=== PATIENT | female | born 1975 | race Caucasian/White ===

== ENCOUNTER 2022-01-17 13:21 | Outpatient (CLI) | payer OTHER, SELFPAY ==
[2022-01-17 10:37] LABS: Albumin* 4.7 g/dL (3.3-5.0); Chloride* 100 mmol/L (96-114)
[2022-01-17 10:38] LABS: Potassium* 4.1 mmol/L (3.6-5.1); Sodium* 137 mmol/L (135-149)
[2022-01-17 10:39] LABS: Cholesterol* 182 mg/dL (90-199)
[2022-01-17 10:40] LABS: Alanine Aminotransferase* 18 U/L (4-35); Alkaline Phosphatase* 45 U/L (40-150); Aspartate Amino Transferase* 22 U/L (12-35); Bilirubin Total* 1.7 mg/dL (0.1-1.5); Blood Urea Nitrogen* 21 mg/dL (5-24); Calcium* 9.2 mg/dL (8.4-10.6); Carbon Dioxide* 29 mmol/L (20-32); Creatinine* 0.8 mg/dL (0.5-1.5); Estimated Glomerular Filt Rate 92 ml/min; Glucose* 85 mg/dL (60-115); Total Protein* 6.8 g/dL (6.0-8.3); Triglycerides* 60 mg/dL (40-149)
[2022-01-17 10:41] LABS: HDL Cholesterol* 81 mg/dL (>=50); LDL Cholesterol Calculated 89 mg/dL (<100)
== END 2022-01-17 13:22 | disposition home or self-care (01) ==
PROVIDERS: PCP Family Medicine; Visit Provider Family Medicine
DX: Z01.419 Encounter for gynecological examination (general) (routine) without abnormal findings (principal); Z13.6 Encounter for screening for cardiovascular disorders; Z13.9 Encounter for screening, unspecified
CPT/HCPCS: 80053; 80061

== ENCOUNTER 2022-02-05 09:03 | Outpatient (CLI) | payer OTHER, SELFPAY ==
--- NOTE | 2022-02-05 09:15 | CRLHL7_ITS ---
For Patients: As a result of the Cures Act, medical imaging exams and procedure reports are released immediately into your electronic medical record. You may view this report before your referring provider. If you have questions, please contact your health care provider. BILATERAL DIGITAL SCREENING MAMMOGRAM WITH TOMOSYNTHESIS AND COMPUTER-AIDED DETECTION CLINICAL HISTORY: Routine screening exam. COMPARISON: 12/29/2020, 11/17/2019, 07/01/2018, 07/02/2017. TECHNIQUE: Digital mammogram in CC and MLO projections including computer-aided detection (CAD). Tomosynthesis utilized. BREAST COMPOSITION: The breasts are heterogeneously dense, which may obscure small masses. FINDINGS: RIGHT Breast: Nodular density behind the RIGHT nipple 2 cm from the nipple. Probable fibrocystic change. LEFT Breast: No suspicious findings. IMPRESSION: RIGHT breast asymmetry/mass. RECOMMENDATIONS: RIGHT breast ultrasound recommended. BI-RADS Category 0: Incomplete: Need Additional Imaging Evaluation and/or Prior Mammograms for Comparison [facility] will contact the patient for follow-up. A lay language report of this examination will be provided to the patient. Dictated by Antwon Peoples MD @ 02/05/2022 11:13:24 AM j/Dictated by: Antwon Peoples MD @ 02/05/2022 11:14:00 AM (Electronically Signed)
== END 2022-02-05 09:04 | disposition home or self-care (01) ==
PROVIDERS: PCP Family Medicine; Visit Provider Family Medicine
DX: Z12.31 Encounter for screening mammogram for malignant neoplasm of breast (principal); N63.10 Unspecified lump in the right breast, unspecified quadrant
CPT/HCPCS: 77063; 77067

== ENCOUNTER 2022-02-20 09:02 | Outpatient (CLI) | payer OTHER, SELFPAY ==
--- NOTE | 2022-02-20 09:15 | CRLHL7_ITS ---
For Patients: As a result of the Cures Act, medical imaging exams and procedure reports are released immediately into your electronic medical record. You may view this report before your referring provider. If you have questions, please contact your health care provider. RIGHT BREAST ULTRASOUND CLINICAL HISTORY: RIGHT breast mass/asymmetry. COMPARISON: 02/05/2022. TECHNIQUE: Real-time ultrasound imaging of RIGHT breast with imaging documentation. FINDINGS: Targeted RIGHT breast ultrasound performed at 10 o`clock 1 cm from the nipple anechoic simple cyst is present with circumscribed margins and increased through-transmission measuring 1.9 x 0.4 x 1.7 cm. IMPRESSION: Benign fibrocystic change RIGHT breast 10 o`clock 1 cm from the nipple with simple cyst measuring 1.9 cm. No evidence of malignancy. RECOMMENDATIONS: Annual BILATERAL screening mammography. Results and recommendations were discussed with the patient at the time of the exam. BI-RADS Category 2: Benign A lay language report of this examination will be provided to the patient. Dictated by Antwon Peoples MD @ 02/20/2022 9:29:21 AM jj/Dictated by: Antwon Peoples MD @ 02/20/2022 9:29:00 AM (Electronically Signed)
== END 2022-02-20 09:03 | disposition home or self-care (01) ==
LOC: US 09:02
PROVIDERS: PCP Family Medicine; Visit Provider Family Medicine
DX: N63.10 Unspecified lump in the right breast, unspecified quadrant (principal); R92.8 Other abnormal and inconclusive findings on diagnostic imaging of breast
CPT/HCPCS: 76642

== ENCOUNTER 2023-01-24 08:25 | Outpatient (CLI) | payer OTHER, SELFPAY | END 2023-01-24 08:26 | disposition home or self-care (01) | LOC: NFLDREF 01-28 23:04 | PROVIDERS: PCP Family Medicine; Referring Provider Family Medicine; Visit Provider Family Medicine | DX: D69.6 Thrombocytopenia, unspecified (principal); R17 Unspecified jaundice; Z13.6 Encounter for screening for cardiovascular disorders | CPT/HCPCS: 80053; 80061 ==

== ENCOUNTER 2023-02-18 16:03 | Outpatient (CLI) | payer OTHER, SELFPAY ==
--- NOTE | 2023-02-18 16:15 | CRLHL7_ITS ---
For Patients: As a result of the Century Cures Act, medical imaging exams and procedure reports are released immediately into your electronic medical record. You may view this report before your referring provider. If you have questions, please contact your health care provider. BILATERAL SCREENING MAMMOGRAM WITH COMPUTER-AIDED DETECTION AND TOMOSYNTHESIS TECHNIQUE: CC and MLO views were obtained. These mammographic images have been obtained using full-field digital technique. These mammographic images were interpreted with the benefit of computer-aided detection. Breast Tomosynthesis was used in this interpretation. COMPARISON FILM: 02/05/22, 12/29/20, 11/17/19. FINDINGS: The breasts are heterogeneously dense, which may obscure small masses IMPRESSION: There is no radiographic evidence for malignancy. ASSESSMENT: BI-RADS Category 1: Negative RECOMMENDATION: Routine screening mammogram in 1 year. A lay language report of this examination will be provided to the patient. Antwon Peoples M.D. Diagnostic Radiologist [email or web address] Transcribed: 6:31 p.mJackson anglin/Dictated by: Antwon Peoples MD @ 02/19/2023 1:08:00 PM (Electronically Signed)
== END 2023-02-18 16:04 | disposition home or self-care (01) ==
LOC: MAMMO 16:04
PROVIDERS: PCP Family Medicine; Visit Provider Family Medicine
DX: Z12.31 Encounter for screening mammogram for malignant neoplasm of breast (principal); R92.2 Inconclusive mammogram
CPT/HCPCS: 77063; 77067

== ENCOUNTER 2024-05-31 08:40 | Outpatient (CLI) | payer OTHER, SELFPAY | END 2024-05-31 08:41 | disposition home or self-care (01) | LOC: NFLDREF 06-01 05:21 | PROVIDERS: PCP Family Medicine; Referring Provider Family Medicine; Visit Provider Family Medicine | DX: D69.6 Thrombocytopenia, unspecified (principal); Z13.6 Encounter for screening for cardiovascular disorders; Z13.1 Encounter for screening for diabetes mellitus | CPT/HCPCS: 80061; 82306; 82947 ==

== ENCOUNTER 2024-06-25 09:11 | Outpatient (CLI) | payer OTHER, SELFPAY ==
--- NOTE | 2024-06-25 09:15 | CRLHL7_ITS ---
For Patients: As a result of the Century Cures Act, medical imaging exams and procedure reports are released immediately into your electronic medical record. You may view this report before your referring provider. If you have questions, please contact your health care provider. INDICATION: BILATERAL SCREENING AMMOGRAM, ASYMPTOMATIC 49 Y/O FEMALE COMPARISON: 02/18/23, 02/05/22, 12/29/20 TECHNIQUE: CC and MLO views were obtained. These mammographic images have been obtained using full-field digital technique. These mammographic images were interpreted with the benefit of computer aided detection and tomosynthesis. BREAST COMPOSITION: The breasts are heterogeneously dense, which may obscure small masses. FINDINGS: No suspicious findings. ASSESSMENT: BI-RADS 2 Benign RECOMMENDATION: Annual screening mammogram. A lay language report of this examination will be provided to the patient. Dictated by: Antwon ePoples MD @ 06/25/2024 10:06:21 (Electronically Signed)
== END 2024-06-25 09:12 | disposition home or self-care (01) ==
PROVIDERS: PCP Family Medicine; Visit Provider Family Medicine
DX: Z12.31 Encounter for screening mammogram for malignant neoplasm of breast (principal); R92.333 Mammographic heterogeneous density, bilateral breasts
CPT/HCPCS: 77063; 77067